=== PATIENT | male | born 1955 | race African-American/Black ===

== ENCOUNTER 2016-09-18 11:01 | Inpatient (IN) | payer OTHER ==
[2016-09-18 11:46] VITALS: BMI 20.6
--- NOTE | 2016-09-18 13:49 | HP ---
CIWA Score - CIWA Score Nausea/Vomitin-No Nausea/No Vomiting Muscle Tremors: 4-Moderate,w/Arms Extend Anxiety: 3 Agitation: 4-Moderately Restless Paroxysmal Sweats: 3 Orientation: 0-Oriented Tacttile Disturbances: 0-None Auditory Disturbances: 0-None Visual Disturbances: 0-None Headache: 0-None Present CIWA-Ar Total Score: 14 Admission ROS BHS - HPI Chief Complaint: I started drinking and now its become a daily thing and need help to stop and try to stay sober. Allergies/Adverse Reactions: Allergies Allergy/AdvReac Type Severity Reaction Status Date / Time No Known Allergies Allergy Verified 09/18/16 12:28 History of Present Illness: pt is a 61yr old male with a history of alcohol dependence seeking detox for treatment. Exam Limitations: No Limitations - Ebola screening Have you traveled outside of the country in the last 21 days: No Have you had contact with anyone from an Ebola affected area: No Have you been sick,other than usual withdrawal symptoms: No Do you have a fever: No - Review of Systems Constitutional: Chills, Diaphoresis, Loss of Appetite, Night Sweats EENT: reports: No Symptoms Reported Respiratory: reports: No Symptoms reported Cardiac: reports: Syncope GI: reports: Constipated, Nausea, Poor Appetite, Poor Fluid Intake : reports: No Symptoms Reported Musculoskeletal: reports: Muscle Pain Integumentary: reports: Flushing, Sweating Neuro: reports: Tingling, Tremors Endocrine: reports: Excessive Sweating, Flushing, Intolerance to Cold, Intolerance to Heat Hematology: reports: No Symptoms Reported Psychiatric: reports: Judgement Intact, Mood/Affect Appropiate, Orientated x3, Agitated, Anxious Other Systems: Reviewed and Negative Patient History - Patient Medical History Hx Anemia: Yes (IN THE PAST) Hx Asthma: No Hx Chronic Obstructive Pulmonary Disease (COPD): No Hx Cancer: No Hx Cardiac Disorders: No Hx Congestive Heart Failure: No Hx Hypertension: Yes (non compliant with meds.) Hx Hypercholesterolemia: No Hx Pacemaker: No HX Cerebrovascular Accident: No Hx Seizures: No Hx Dementia: No Hx Diabetes: No Hx Gastrointestinal Disorders: No Hx Liver Disease: No Hx Genitourinary Disorders: No Hx Sexually Transmitted Disorders: No Hx Renal Disease (ESRD): No Hx Thyroid Disease: No Hx Human Immunodeficiency Virus (HIV): No (negative) Hx Hepatitis C: Yes Hx Depression: Yes Hx Suicide Attempt: No (denies) Hx Bipolar Disorder: Yes Hx Schizophrenia: No - Patient Surgical History Past Surgical History: Yes Hx Neurologic Surgery: No Hx Cataract Extraction: No Hx Cardiac Surgery: No Hx Lung Surgery: No Hx Breast Surgery: No Hx Breast Biopsy: No Hx Abdominal Surgery: No Hx Appendectomy: No Hx Cholecystectomy: No Hx Genitourinary Surgery: No Hx Section: No Hx Orthopedic Surgery: Yes (fracture both both ankles 27yrs ago) Anesthesia Reaction: No - PPD History Previous Implant?: Yes Documented Results: Positive w/o proof Implanted On Prior R Admission?: No PPD to be Administered?: No - Reproductive History Patient is a Female of Child Bearing Age (11 -55 yrs old): No - Smoking Cessation Smoking history: Current every day smoker Have you smoked in the past 12 months: Yes Aproximately how many cigarettes per day: 4 Cigars Per Day: 0 Hx Chewing Tobacco Use: No Initiated information on smoking cessation: Yes 'Breaking Loose' booklet given: 09/18/16 - Substance & Tx. History Hx Alcohol Use: Yes Hx Substance Use: No Substance Use Type: Alcohol Hx Substance Use Treatment: Yes - Substances Abused Alcohol Route: Oral Frequency: Daily Amount used: 4 pints vodka Age of first use: 17 Date of Last Use: 09/17/16 Family Disease History - Family Disease History Family Disease History: Heart Disease: Mother (arthritis, htn), Brother, [place]: Father (etoh ), Other: Father, Mother Admission Physical Exam BHS - Vital Signs Vital Signs: Vital Signs - 24 hr 09/18/16 11:30 Temperature 98.3 F Pulse Rate 73 Respiratory 18 Rate Blood Pressure 138/75 - Physical General Appearance: Yes: Appropriately Dressed, Moderate Distress, Tremorous, Irritable, Sweating, Anxious HEENTM: Yes: Normal Voice Respiratory: Yes: Lungs Clear, Normal Breath Sounds, No Respiratory Distress Neck: Yes: No masses,lesions,Nodules Breast: Yes: Within Normal Limits Cardiology: Yes: Regular Rhythm, Regular Rate, S1, S2 Abdominal: Yes: Normal Bowel Sounds, Non Tender, Soft Genitourinary: Yes: Within Normal Limits Back: Yes: Normal Inspection Musculoskeletal: Yes: full range of Motion Extremities: Yes: Normal Capillary Refill Neurological: Yes: Fully Oriented, Alert, Normal Response Integumentary: Yes: Normal Color, Diaphoresis Lymphatic: Yes: Within Normal Limits - Diagnostic (1) Essential hypertension Current Visit: Yes Status: Chronic (2) Hepatitis C Current Visit: Yes Status: Chronic Qualifiers: Viral hepatitis chronicity: chronic Hepatic coma status: without hepatic coma Qualified Code(s): B18.2 - Chronic viral hepatitis C (3) Nicotine dependence Current Visit: Yes Status: Chronic Qualifiers: Nicotine product type: cigarettes Substance use status: uncomplicated Qualified Code(s): F17.210 - Nicotine dependence, cigarettes, uncomplicated (4) Alcohol dependence with uncomplicated withdrawal Current Visit: Yes Status: Chronic Cleared for Admission S - Detox or Rehab [facility] Level of Care: Medically Managed Detox Regimen/Protocol: Librium S Breath Alcohol Content Breath Alcohol Content: 0 Urine Drug Screen - Results Drug Screen Negative: No Urine Drug Screen Results: THC-Marijuana, BZO-Benzodiazepines
[2016-09-18] MEDS ORDERED: chlordiazePOXIDE HCL 25 MG CAPSULE PO PRN (14:00)
[2016-09-18] MEDS ORDERED: guaiFENesin/D-METHORPHAN HB 10 ML UNIT-DOSE CUPS PO PRN (14:00)
[2016-09-18] MEDS ORDERED: MAG HYDROX/AL HYDROX/SIMETH 30 ML UNIT-DOSE CUP PO PRN (14:00)
[2016-09-18] MEDS ORDERED: LOPERAMIDE HCL 2 MG CAPSULE PO PRN (14:00)
[2016-09-18] MEDS ORDERED: IBUPROFEN 400 MG TABLET (FP) PO PRN (14:00)
[2016-09-18] MEDS ORDERED: MAGNESIUM HYDROX 2400MG/30ML ORAL SUSPENSION 30 ML CUP PO PRN (14:00)
[2016-09-18] MEDS ORDERED: MAGNESIUM CITRATE 300 ML BOTTLE PO PRN (14:00)
[2016-09-18] MEDS ORDERED: MENTHOL/PHENOL 1 EACH UD MM PRN (14:00)
[2016-09-18] MEDS ORDERED: ACETAMINOPHEN 325 MG TABLET (FP) PO PRN (14:00)
[2016-09-18] MEDS ORDERED: NICOTINE POLACRILEX 4 MG GUM BUC PRN (14:00)
[2016-09-18] MEDS ORDERED: P-EPHED 60MG/TRIPROLIDI 2.5MG TABLET PO PRN (14:00)
[2016-09-18] MEDS ORDERED: hydrOXYzine PAMOATE 50 MG CAPSULE (FP) PO PRN (14:00)
[2016-09-18] MEDS ORDERED: chlordiazePOXIDE HCL 25 MG CAPSULE PO ONE (14:06)
[2016-09-18] MEDS: chlordiazePOXIDE HCL 25 MG CAPSULE PO SCH ×2 (17:34→22:28)
[2016-09-18 20:38] LABS: HIV 1 & 2 AB NEGATIVE; HIV 1 AGp24 NEGATIVE
[2016-09-18] MEDS: THIAMINE HCL 100 MG TABLET (FP) PO SCH (22:28)
[2016-09-18] MEDS: diphenhydrAMINE HCL 50 MG CAPSULE PO PRN (22:28)
--- NOTE | 2016-09-18 23:02 | EKG ---
Test Reason : Blood Pressure : / mmHG Vent. Rate : 065 BPM Atrial Rate : 065 BPM P-R Int : 120 ms QRS Dur : 084 ms QT Int : 424 ms P-R-T Axes : 075 058 060 degrees QTc Int : 440 ms NORMAL SINUS RHYTHM NONSPECIFIC ST ABNORMALITY ABNORMAL ECG NO PREVIOUS ECGS AVAILABLE Confirmed by ROCÍO REZA MD ([id number]) on 09/18/2016 11:01:33 PM Referred By: Confirmed By:ROCÍO REZA MD
[2016-09-19] MEDS: chlordiazePOXIDE HCL 25 MG CAPSULE PO SCH ×4 (05:55→22:31)
[2016-09-19] MEDS: PRENATAL VITAMINS W/ FOLIC ACID TABLET (FP) PO SCH (10:09)
[2016-09-19] MEDS: SERTRALINE HCL 50 MG TABLET (FP) PO SCH (10:09)
[2016-09-19] MEDS: ASPIRIN 81 MG CHEWABLE TABLETS PO SCH (10:09)
[2016-09-19] MEDS: amLODIPine BESYLATE 10 MG TABLET (FP) PO SCH (10:10)
[2016-09-19] MEDS: NICOTINE 21 MG/24 HOURS TOPICAL PATCH TD SCH (10:12)
--- NOTE | 2016-09-19 10:37 | PN ---
BHS CIWA - CIWA Score Nausea/Vomitin Muscle Tremors: 2 Anxiety: 2 Agitation: 2 Paroxysmal Sweats: 3 Orientation: 0-Oriented Tacttile Disturbances: 1-Very Mild Itch/Numbness Auditory Disturbances: 0-None Visual Disturbances: 0-None Headache: 1-Very Mild CIWA-Ar Total Score: 13 BHS Progress Note (SOAP) Subjective: sweats, mild headache but better Objective: 09/19/16 10:35 Vital Signs Temperature 99.1 F 09/19/16 09:38 Pulse Rate 79 09/19/16 09:38 Respiratory Rate 20 09/19/16 09:38 Blood Pressure 135/84 09/19/16 09:38 O2 Sat by Pulse Oximetry (%) Laboratory Tests 09/18/16 13:15 HIV 1&2 Antibody Screen Negative HIV P24 Antigen Negative pending labs pt aox3 in nad ambulating Assessment: 09/19/16 10:35 withdrawal sx's Plan: cont. detox increase fluids motrin prn f/up pending labs
[2016-09-19 10:38] LABS: MCH 31.8 pg (25.7-33.7); MCHC 32.7 g/dl (32.0-35.9); MEAN CELL VOLUME 97.4 fl (80-96); MEAN PLT VOLUME 9.8 fl (7.5-11.1); PLATELET COUNT 94 K/MM3 (134-434); RDW 12.9 % (11.9-15.9); WHITE BLOOD COUNT 3.4 K/mm3 (4.0-10.0)
[2016-09-19] MEDS ORDERED: LISINOPRIL 20 MG TABLET (FP) PO ONE (10:50)
[2016-09-19 10:58] LABS: ALBUMIN 4.3 g/dl (3.4-5.0); ALK PHOS 72 U/L (45-117); ANION GAP 11 (8-16); CALCIUM 9.8 mg/dL (8.5-10.1); CO2 29 mmol/L (21-32); COCKROFT - GAULT 92.07; CREATININE 0.8 mg/dL (0.7-1.3); GLUCOSE,RANDOM 131 mg/dL (74-106); SGOT/AST 46 U/L (15-37); SGPT/ALT 36 U/L (12-78); TOT PROT 8.1 g/dl (6.4-8.2)
--- NOTE | 2016-09-19 16:38 | CONSULT ---
[facility] Psychiatric Consult - Data Date of interview: 09/19/16 Admission source: [facility] Identifying data: Readmission to [facility] for this 61 y/o AA male seeking detox treatment for alcohol dependence (utox is positive for marijuana).Patient is single without children,domiciled,unemployed and supported on Public Assistance. Substance Abuse History: - Smoking Cessation. Smoking history: Current every day smoker. Have you smoked in the past 12 months: Yes. Aproximately how many cigarettes per day: 4. Cigars Per Day: 0. Hx Chewing Tobacco Use: No. Initiated information on smoking cessation: Yes. 'Breaking Loose' booklet given : 09/18/16. - Substance & Tx. History. Hx Alcohol Use: Yes. Hx Substance Use : No. Substance Use Type: Alcohol. Hx Substance Use Treatment: Yes. - Substances Abused. Alcohol. Route: Oral. Frequency: Daily. Amount used: 4 pints vodka. Age of first use: 17. Date of Last Use: 09/17/16. Confirmed by patient. Medical History: GERD,anemia,hypertension and hepatitis C. Psychiatric History: Diagnosed with Bipolar Dipolar Disorder at [facility] in 2012.Prescribed sertraline and trazodone (doses not remembered).Mr Cotto is followed at [facility] in [facility].Suicide attempt via overdose with medications represents the main reason of his admission to [facility] in 2012. Physical/Sexual Abuse/Trauma History: Patient denies. Additional Comment: Urine Drug Screen Results: THC-Marijuana, BZO- Benzodiazepines.Noted. Mental Status Exam - Mental Status Exam Alert and Oriented to: Time, Place, Person Cognitive Function: Good Patient Appearance: Well Groomed Mood: Withdrawn, Anxious Affect: Mood Congruent Patient Behavior: Fatigued, Appropriate, Cooperative Speech Pattern: Clear, Appropriate Voice Loudness: Normal Thought Process: Goal Oriented Thought Disorder: Not Present Hallucinations: Denies Suicidal Ideation: Denies Homicidal Ideation: Denies Insight/Judgement: Fair Sleep: Poorly, Difficulty falling asleep Appetite: Good Muscle strength/Tone: Normal Gait/Station: Normal Psychiatric Findings - Problem List (Vici 1, 2,3) (1) Alcohol dependence with uncomplicated withdrawal Current Visit: Yes Status: Acute (2) Nicotine dependence Current Visit: Yes Status: Acute Qualifiers: Nicotine product type: cigarettes Substance use status: uncomplicated Qualified Code(s): F17.210 - Nicotine dependence, cigarettes, uncomplicated (3) Cannabis abuse Current Visit: Yes Status: Acute (4) Bipolar disorder Current Visit: Yes Status: Chronic Qualifiers: Active/Remission status: currently active Current bipolar episode type : depressed Current episode severity: mild Qualified Code(s): F31.31 - Bipolar disorder, current episode depressed, mild (5) Essential hypertension Current Visit: Yes Status: Chronic (6) Hepatitis C Current Visit: Yes Status: Chronic Qualifiers: Viral hepatitis chronicity: chronic Hepatic coma status: without hepatic coma Qualified Code(s): B18.2 - Chronic viral hepatitis C (7) GERD (gastroesophageal reflux disease) Current Visit: Yes Status: Chronic Qualifiers: Esophagitis presence: without esophagitis Qualified Code(s): K21.9 - Gastro-esophageal reflux disease without esophagitis (8) Insomnia Current Visit: Yes Status: Acute - Initial Treatment Plan Initial Treatment Plan: Psychoeducation.Detoxification.Noted current treatment with zoloft 100 mg po daily.Side effects/benefits discussed with the patient.He agrees with this careplan.Observation.
[2016-09-19] MEDS: diphenhydrAMINE HCL 50 MG CAPSULE PO PRN (22:31)
[2016-09-19] MEDS: THIAMINE HCL 100 MG TABLET (FP) PO SCH (22:31)
[2016-09-20] MEDS: chlordiazePOXIDE HCL 25 MG CAPSULE PO SCH ×2 (05:44→10:21)
[2016-09-20] MEDS: PRENATAL VITAMINS W/ FOLIC ACID TABLET (FP) PO SCH (10:20)
[2016-09-20] MEDS: ASPIRIN 81 MG CHEWABLE TABLETS PO SCH (10:20)
[2016-09-20] MEDS: SERTRALINE HCL 50 MG TABLET (FP) PO SCH (10:20)
[2016-09-20] MEDS: amLODIPine BESYLATE 10 MG TABLET (FP) PO SCH (10:21)
[2016-09-20] MEDS: LISINOPRIL 20 MG TABLET (FP) PO SCH (10:21)
[2016-09-20] MEDS: NICOTINE 21 MG/24 HOURS TOPICAL PATCH TD SCH (10:24)
--- NOTE | 2016-09-20 10:57 | PN ---
[facility] CIWA - CIWA Score Nausea/Vomitin-No Nausea/No Vomiting Muscle Tremors: 3 Anxiety: 2 Agitation: 3 Paroxysmal Sweats: 3 Orientation: 0-Oriented Tacttile Disturbances: 0-None Auditory Disturbances: 0-None Visual Disturbances: 0-None Headache: 0-None Present CIWA-Ar Total Score: 11 BHS Progress Note (SOAP) Subjective: sweats agitation shakes interrupted sleep Objective: 09/20/16 10:57 Vital Signs Temperature 96.4 F L 09/20/16 09:11 Pulse Rate 64 09/20/16 09:11 Respiratory Rate 16 09/20/16 09:11 Blood Pressure 130/74 09/20/16 09:11 O2 Sat by Pulse Oximetry (%) Laboratory Tests 09/18/16 09/19/16 09/19/16 13:15 06:00 06:00 WBC 3.4 L D RBC 4.29 Hgb 13.7 Hct 41.8 MCV 97.4 H MCHC 32.7 RDW 12.9 Plt Count 94 L D MPV 9.8 Sodium 138 Potassium 3.7 Chloride 98 Carbon Dioxide 29 D Anion Gap 11 BUN 23 H D Creatinine 0.8 Creat Clearance w eGFR > 60 Random Glucose 131 H D Calcium 9.8 Total Bilirubin 2.0 H D AST 46 H D ALT 36 D Alkaline Phosphatase 72 Total Protein 8.1 Albumin 4.3 RPR Titer HIV 1&2 Antibody Screen Negative HIV P24 Antigen Negative 09/19/16 06:00 WBC RBC Hgb Hct MCV MCHC RDW Plt Count MPV Sodium Potassium Chloride Carbon Dioxide Anion Gap BUN Creatinine Creat Clearance w eGFR Random Glucose Calcium Total Bilirubin AST ALT Alkaline Phosphatase Total Protein Albumin RPR Titer Nonreactive HIV 1&2 Antibody Screen HIV P24 Antigen awake/alert ambulating no acute distress Assessment: 09/20/16 10:57 withdrawal sx Plan: continue detox increase fluids
[2016-09-20] MEDS: chlordiazePOXIDE 5 MG CAPSULE PO SCH ×2 (17:40→23:22)
[2016-09-20] MEDS: diphenhydrAMINE HCL 50 MG CAPSULE PO PRN (23:22)
[2016-09-20] MEDS: THIAMINE HCL 100 MG TABLET (FP) PO SCH (23:25)
[2016-09-21] MEDS: chlordiazePOXIDE 5 MG CAPSULE PO SCH ×2 (05:45→11:19)
--- NOTE | 2016-09-21 09:08 | PN ---
S Progress Note (SOAP) Subjective: ALERT,IRRITABLE,ANXIOUS,INTERRUPTED SLEEP Objective: 09/21/16 09:07 Vital Signs Temperature 97.0 F L 09/21/16 06:24 Pulse Rate 57 L 09/21/16 06:24 Respiratory Rate 16 09/21/16 06:24 Blood Pressure 128/75 09/21/16 06:24 O2 Sat by Pulse Oximetry (%) Assessment: 09/21/16 09:07 WITHDRAWAL SYMPTOM Plan: CONTINUE DETOX,DISCHARGE IN AM
[2016-09-21] MEDS: ASPIRIN 81 MG CHEWABLE TABLETS PO SCH (11:17)
[2016-09-21] MEDS: HARVONI PO SCH (11:17)
[2016-09-21] MEDS: amLODIPine BESYLATE 10 MG TABLET (FP) PO SCH (11:18)
[2016-09-21] MEDS: LISINOPRIL 20 MG TABLET (FP) PO SCH (11:18)
[2016-09-21] MEDS: PRENATAL VITAMINS W/ FOLIC ACID TABLET (FP) PO SCH (11:18)
[2016-09-21] MEDS: SERTRALINE HCL 50 MG TABLET (FP) PO SCH (11:19)
[2016-09-21] MEDS: NICOTINE 21 MG/24 HOURS TOPICAL PATCH TD SCH (11:19)
[2016-09-21] MEDS: chlordiazePOXIDE HCL 10 MG CAPSULE PO SCH ×2 (18:14→22:42)
[2016-09-21] MEDS: THIAMINE HCL 100 MG TABLET (FP) PO SCH (22:42)
[2016-09-22] MEDS: chlordiazePOXIDE HCL 10 MG CAPSULE PO SCH (06:18)
[2016-09-22] MEDS: ASPIRIN 81 MG CHEWABLE TABLETS PO SCH (09:54)
[2016-09-22] MEDS: PRENATAL VITAMINS W/ FOLIC ACID TABLET (FP) PO SCH (09:54)
[2016-09-22] MEDS: LISINOPRIL 20 MG TABLET (FP) PO SCH (09:54)
[2016-09-22] MEDS: SERTRALINE HCL 50 MG TABLET (FP) PO SCH (09:54)
[2016-09-22] MEDS: HARVONI PO SCH (09:54)
[2016-09-22] MEDS: NICOTINE 21 MG/24 HOURS TOPICAL PATCH TD SCH (09:55)
[2016-09-22] MEDS: amLODIPine BESYLATE 10 MG TABLET (FP) PO SCH (09:55)
[2016-09-22 10:32] VITALS: BP 112/75; PULSE 98; TEMP 98.8
--- NOTE | 2016-09-22 15:07 | DS ---
[facility] Detox Discharge Summary Admission Date: 09/18/16 Discharge Date: 09/22/16 - History Present History: Alcohol Dependence, Cannabis Dependence, Cocaine Dependence Additional Comments: HTN,GERD,Hep C - Physical Exam Results Vital Signs: Vital Signs Temperature 98.8 F 09/22/16 10:32 Pulse Rate 98 H 09/22/16 10:32 Respiratory Rate 18 09/22/16 10:32 Blood Pressure 112/75 09/22/16 10:32 O2 Sat by Pulse Oximetry (%) Pertinent Admission Physical Exam Findings: Withdrawal sx Laboratory Last Values WBC 3.4 K/mm3 (4.0-10.0) L D 09/19/16 06:00 RBC 4.29 M/mm3 (4.00-5.60) 09/19/16 06:00 Hgb 13.7 GM/dL (11.7-16.9) 09/19/16 06:00 Hct 41.8 % (35.4-49) 09/19/16 06:00 MCV 97.4 fl (80-96) H 09/19/16 06:00 MCHC 32.7 g/dl (32.0-35.9) 09/19/16 06:00 RDW 12.9 % (11.9-15.9) 09/19/16 06:00 Plt Count 94 K/MM3 (134-434) L D 09/19/16 06:00 MPV 9.8 fl (7.5-11.1) 09/19/16 06:00 Sodium 138 mmol/L (136-145) 09/19/16 06:00 Potassium 3.7 mmol/L (3.5-5.1) 09/19/16 06:00 Chloride 98 mmol/L (98-107) 09/19/16 06:00 Carbon Dioxide 29 mmol/L (21-32) D 09/19/16 06:00 Anion Gap 11 (8-16) 09/19/16 06:00 BUN 23 mg/dL (7-18) H D 09/19/16 06:00 Creatinine 0.8 mg/dL (0.7-1.3) 09/19/16 06:00 Creat Clearance w eGFR > 60 (>60) 09/19/16 06:00 Random Glucose 131 mg/dL (74-106) H D 09/19/16 06:00 Calcium 9.8 mg/dL (8.5-10.1) 09/19/16 06:00 Total Bilirubin 2.0 mg/dL (0.2-1.0) H D 09/19/16 06:00 AST 46 U/L (15-37) H D 09/19/16 06:00 ALT 36 U/L (12-78) D 09/19/16 06:00 Alkaline Phosphatase 72 U/L (45-117) 09/19/16 06:00 Total Protein 8.1 g/dl (6.4-8.2) 09/19/16 06:00 Albumin 4.3 g/dl (3.4-5.0) 09/19/16 06:00 RPR Titer Nonreactive (NONREACTIVE) 09/19/16 06:00 HIV 1&2 Antibody Screen Negative 09/18/16 13:15 HIV P24 Antigen Negative 09/18/16 13:15 Labs noted - Treatment Hospital Course: Detox Protocol Followed, Detoxed Safely, Responded well, Discharged Condition Good - Medication Discharge Medications: Ambulatory Orders Amlodipine Besylate [Norvasc -] 10 mg PO DAILY #30 tablet 04/16/15 Aspirin [ASA -] 81 mg PO DAILY #30 tab.chew 04/16/15 Sertraline HCl [Zoloft -] 100 mg PO DAILY #30 tablet 03/15/16 Sertraline HCl [Zoloft -] 100 mg PO DAILY #30 tablet 09/19/16 - Diagnosis (1) Alcohol dependence with uncomplicated withdrawal Status: Acute (2) Cannabis abuse Status: Acute (3) Insomnia Status: Acute Qualifiers: Insomnia type: primary Qualified Code(s): F51.01 - Primary insomnia (4) Nicotine dependence Status: Acute Qualifiers: Nicotine product type: cigarettes Substance use status: uncomplicated Qualified Code(s): F17.210 - Nicotine dependence, cigarettes, uncomplicated (5) Bipolar disorder Status: Chronic Qualifiers: Active/Remission status: currently active Current bipolar episode type : depressed Current episode severity: mild Qualified Code(s): F31.31 - Bipolar disorder, current episode depressed, mild (6) Essential hypertension Status: Chronic (7) GERD (gastroesophageal reflux disease) Status: Chronic Qualifiers: Esophagitis presence: without esophagitis Qualified Code(s): K21.9 - Gastro-esophageal reflux disease without esophagitis (8) Hepatitis C Status: Chronic Qualifiers: Viral hepatitis chronicity: chronic Hepatic coma status: without hepatic coma Qualified Code(s): B18.2 - Chronic viral hepatitis C - AMA Did Patient Leave Against Medical Advice: No
== END 2016-09-22 10:05 | disposition home or self-care (01) | DRG 775 ==
LOC: YASAS 11:01 → Y6N 14:04
PROVIDERS: ADMIT Internal Medicine Addiction Medicine; ATTEND Internal Medicine Addiction Medicine
PROC: HZ2ZZZZ Detoxification Services for Substance Abuse Treatment (ICD-10-PCS; principal; 2016-09-22)
DX: F10.230 Alcohol dependence with withdrawal, uncomplicated (principal); F17.210 Nicotine dependence, cigarettes, uncomplicated; F12.10 Cannabis abuse, uncomplicated; F31.31 Bipolar disorder, current episode depressed, mild; F51.01 Primary insomnia; I10 Essential (primary) hypertension; K21.9 Gastro-esophageal reflux disease without esophagitis; B18.2 Chronic viral hepatitis C; F31.9 Bipolar disorder, unspecified
CPT/HCPCS: 36415; 71020-TC; 80053; 81003; 85027; 86593; 87389; 93005; 93010

== ENCOUNTER 2017-01-14 12:46 | Inpatient (IN) | payer OTHER ==
--- NOTE | 2017-01-14 15:35 | HP ---
CIWA Score - CIWA Score Nausea/Vomitin Muscle Tremors: 4-Moderate,w/Arms Extend Anxiety: 3 Agitation: 4-Moderately Restless Paroxysmal Sweats: 3 Orientation: 0-Oriented Tacttile Disturbances: 1-Very Mild Itch/Numbness Auditory Disturbances: 0-None Visual Disturbances: 0-None Headache: 3-Moderate CIWA-Ar Total Score: 21 Admission ROS BHS - HPI Chief Complaint: alcohol and cocaine withdrawal sx Allergies/Adverse Reactions: Allergies Allergy/AdvReac Type Severity Reaction Status Date / Time No Known Allergies Allergy Verified 09/18/16 12:28 History of Present Illness: 61 yo m with h/o chroonic alcohol and cocaine dependence last detox at [facility] 7 months PMHx nicotine dependenceHTN, PPD+ CXr neg, took Inh IN PAST. lAST DRINK YESTERDAY NOW WITH NAUSEA, TREMORS, SWEATS, ANXIETY REQUESTING INPATIENT DETOX AND THEN REHAB - Ebola screening Have you traveled outside of the country in the last 21 days: No Have you had contact with anyone from an Ebola affected area: No Have you been sick,other than usual withdrawal symptoms: No Do you have a fever: No - Review of Systems Constitutional: Changes in sleep, Unintentional Wgt. Loss EENT: reports: No Symptoms Reported Respiratory: reports: No Symptoms reported Cardiac: reports: No Symptoms Reported GI: reports: Nausea, Poor Appetite, Abdominal cramping : reports: No Symptoms Reported Musculoskeletal: reports: Joint Pain, Muscle Pain, Other (arthritis, age related ) Integumentary: reports: Flushing, Sweating Neuro: reports: Headache, Numbness, Tremors, Weakness Endocrine: reports: No Symptoms Reported Psychiatric: reports: Judgement Intact, Orientated x3, Agitated, Anxious, Depressed Other Systems: Reviewed and Negative Patient History - Patient Medical History Hx Anemia: Yes (IN THE PAST) Hx Asthma: No Hx Chronic Obstructive Pulmonary Disease (COPD): No Hx Cancer: No Hx Cardiac Disorders: No Hx Congestive Heart Failure: No Hx Hypertension: Yes (non compliant with meds.) Hx Hypercholesterolemia: No Hx Pacemaker: No HX Cerebrovascular Accident: No Hx Seizures: No Hx Dementia: No Hx Diabetes: No Hx Gastrointestinal Disorders: No Hx Liver Disease: No Hx Genitourinary Disorders: No Hx Sexually Transmitted Disorders: No Hx Renal Disease (ESRD): No Hx Thyroid Disease: No Hx Human Immunodeficiency Virus (HIV): No (negative) Hx Hepatitis C: Yes Hx Depression: Yes Hx Suicide Attempt: No (denies) Hx Bipolar Disorder: Yes Hx Schizophrenia: No - Patient Surgical History Past Surgical History: Yes Hx Neurologic Surgery: No Hx Cataract Extraction: No Hx Cardiac Surgery: No Hx Lung Surgery: No Hx Breast Surgery: No Hx Breast Biopsy: No Hx Abdominal Surgery: No Hx Appendectomy: No Hx Cholecystectomy: No Hx Genitourinary Surgery: No Hx Section: No Hx Orthopedic Surgery: Yes (fracture both both ankles 27yrs ago) Hx Hysterectomy: No Anesthesia Reaction: No - PPD History Previous Implant?: Yes Documented Results: Positive w/o proof Implanted On Prior R Admission?: No PPD to be Administered?: No - Smoking Cessation Smoking history: Current every day smoker Have you smoked in the past 12 months: Yes Aproximately how many cigarettes per day: 4 Cigars Per Day: 0 Hx Chewing Tobacco Use: No Initiated information on smoking cessation: Yes 'Breaking Loose' booklet given: 01/14/17 - Substance & Tx. History Hx Alcohol Use: Yes (last drink yesterday) Hx Substance Use: Yes (cocaine ) Substance Use Type: Alcohol, Cocaine Hx Substance Use Treatment: Yes - Substances Abused Alcohol Route: Oral Frequency: Daily Amount used: 3-4 points vodka daily Age of first use: 18 Date of Last Use: 01/13/17 Cocaine Route: Smoking Frequency: 1-3 times last 30 days Amount used: $120/day Age of first use: 30 Date of Last Use: 01/13/17 Family Disease History - Family Disease History Family Disease History: Heart Disease: Mother (arthritis, htn), Brother, [place]: Father (etoh ), Other: Father, Mother Admission Physical Exam BHS - Vital Signs Vital Signs: Vital Signs - 24 hr 01/14/17 14:03 Temperature 99.6 F Pulse Rate 69 Respiratory 20 Rate Blood Pressure 154/86 - Physical General Appearance: Yes: No Apparent Distress, Nourished, Appropriately Dressed , Mild Distress, Thin, Tremorous, Irritable, Sweating, Anxious HEENTM: Yes: EOMI, Hearing grossly Normal, Normal ENT Inspection, Normocephalic , Normal Voice, CHRISTOPHER, Pharynx Normal Respiratory: Yes: Within Normal Limits, Chest Non-Tender, Lungs Clear, Normal Breath Sounds, No Respiratory Distress, No Accessory Muscle Use Neck: Yes: Within Normal Limits, No masses,lesions,Nodules, Supple, Trachea in good position Breast: Yes: Breast Exam Deferred Cardiology: Yes: Within Normal Limits, Regular Rhythm, Regular Rate, S1, S2 Abdominal: Yes: Within Normal Limits, Normal Bowel Sounds, Non Tender, Flat, Soft Genitourinary: Yes: Within Normal Limits Back: Yes: Within Normal Limits, Normal Inspection Musculoskeletal: Yes: Gait Steady, Joint Stiffness, Other (arthritis limiting range of motion no h/o injuries age realted) Extremities: Yes: Normal Capillary Refill, Normal Range of Motion, Non-Tender, Tremors Neurological: Yes: 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 NML intact, Fully Oriented, Alert, Motor Strength 5/5, Normal Response, Depressed Affect Integumentary: Yes: Normal Color, Warm, Diaphoresis Lymphatic: Yes: Within Normal Limits - Addiitonal Findings: alcohol withdrawal sx present - Diagnostic (1) Alcohol dependence with uncomplicated withdrawal Current Visit: Yes Status: Chronic (2) Cannabis abuse Current Visit: No Status: Inactive (3) Insomnia Current Visit: Yes Status: Acute Qualifiers: Insomnia type: primary Qualified Code(s): F51.01 - Primary insomnia (4) Nicotine dependence Current Visit: Yes Status: Chronic Qualifiers: Nicotine product type: cigarettes Substance use status: uncomplicated Qualified Code(s): F17.210 - Nicotine dependence, cigarettes, uncomplicated (5) Bipolar disorder Current Visit: Yes Status: Chronic Qualifiers: Active/Remission status: currently active Current bipolar episode type : depressed Current episode severity: mild Qualified Code(s): F31.31 - Bipolar disorder, current episode depressed, mild (6) Essential hypertension Current Visit: Yes Status: Chronic (7) GERD (gastroesophageal reflux disease) Current Visit: Yes Status: Chronic Qualifiers: Esophagitis presence: without esophagitis Qualified Code(s): K21.9 - Gastro-esophageal reflux disease without esophagitis (8) Hepatitis C Current Visit: Yes Status: Chronic Qualifiers: Viral hepatitis chronicity: chronic Hepatic coma status: without hepatic coma Qualified Code(s): B18.2 - Chronic viral hepatitis C (9) Cocaine dependence Current Visit: Yes Status: Acute BHS Breath Alcohol Content Breath Alcohol Content: 0 Urine Drug Screen - Results Drug Screen Negative: No Urine Drug Screen Results: MAX-Cocaine
[2017-01-14] MEDS ORDERED: hydrOXYzine PAMOATE 50 MG CAPSULE (FP) PO PRN (15:42)
[2017-01-14] MEDS ORDERED: diphenhydrAMINE HCL 50 MG CAPSULE PO PRN (15:42)
[2017-01-14] MEDS ORDERED: LOPERAMIDE HCL 2 MG CAPSULE PO PRN (15:42)
[2017-01-14] MEDS ORDERED: guaiFENesin/D-METHORPHAN HB 10 ML UNIT-DOSE CUPS PO PRN (15:42)
[2017-01-14] MEDS ORDERED: P-EPHED 60MG/TRIPROLIDI 2.5MG TABLET PO PRN (15:42)
[2017-01-14] MEDS ORDERED: MAGNESIUM CITRATE 300 ML BOTTLE PO PRN (15:42)
[2017-01-14] MEDS ORDERED: ACETAMINOPHEN 325 MG TABLET (FP) PO PRN (15:42)
[2017-01-14] MEDS ORDERED: MENTHOL/PHENOL 1 EACH UD MM PRN (15:42)
[2017-01-14] MEDS ORDERED: MAG HYDROX/AL HYDROX/SIMETH 30 ML UNIT-DOSE CUP PO PRN (15:42)
[2017-01-14] MEDS ORDERED: MAGNESIUM HYDROX 2400MG/30ML ORAL SUSPENSION 30 ML CUP PO PRN (15:42)
[2017-01-14] MEDS ORDERED: NICOTINE POLACRILEX 2 MG GUM BC PRN (15:42)
[2017-01-14] MEDS ORDERED: IBUPROFEN 400 MG TABLET (FP) PO PRN (15:42)
[2017-01-14] MEDS ORDERED: chlordiazePOXIDE HCL 25 MG CAPSULE PO PRN (15:48)
[2017-01-14] MEDS ORDERED: chlordiazePOXIDE HCL 25 MG CAPSULE PO ONE (18:30)
[2017-01-14] MEDS: ASPIRIN 81 MG CHEWABLE TABLETS PO SCH (19:26)
[2017-01-14] MEDS: chlordiazePOXIDE HCL 25 MG CAPSULE PO SCH ×2 (19:26→22:18)
[2017-01-14] MEDS: amLODIPine BESYLATE 10 MG TABLET (FP) PO SCH (19:26)
[2017-01-14] MEDS: NICOTINE 14 MG/24 HOURS TOPICAL PATCH TD SCH (19:27)
[2017-01-14 21:04] LABS: URINE APPEARANCE CLEAR; URINE BILIRUBIN NEGATIVE (NEGATIVE); URINE BLOOD NEGATIVE (NEGATIVE); URINE COLOR YELLOW; URINE GLUCOSE (UA) NEGATIVE (NEGATIVE); URINE KETONE NEGATIVE (NEGATIVE); URINE LEUK ESTERASE NEGATIVE (NEGATIVE); URINE NITRITE NEGATIVE (NEGATIVE); URINE PROTEIN NEGATIVE (NEGATIVE)
[2017-01-14] MEDS: ZOLPIDEM TARTRATE 5 MG TABLET PO PRN (22:18)
[2017-01-14] MEDS: THIAMINE HCL 100 MG TABLET (FP) PO SCH (22:18)
[2017-01-15] MEDS: chlordiazePOXIDE HCL 25 MG CAPSULE PO SCH ×4 (05:42→22:04)
--- NOTE | 2017-01-15 10:15 | PN ---
S CIWA - CIWA Score Nausea/Vomitin Muscle Tremors: 4-Moderate,w/Arms Extend Anxiety: 4-Mod. Anxious/Guarded Agitation: 4-Moderately Restless Paroxysmal Sweats: 3 Orientation: 0-Oriented Tacttile Disturbances: 0-None Auditory Disturbances: 0-None Visual Disturbances: 0-None Headache: 0-None Present CIWA-Ar Total Score: 18 BHS Progress Note (SOAP) Subjective: nausea, sweats, interrupted sleep, anxiety, tremors Objective: 01/15/17 10:14 Vital Signs - 8 hr 01/15/17 01/15/17 01/15/17 03:22 06:26 09:19 Temperature 99.4 F 98.7 F Pulse Rate 70 75 Respiratory 18 18 18 Rate Blood Pressure 128/67 119/77 Laboratory Tests 01/14/17 20:47 Urine Color Yellow Urine Appearance Clear Urine pH 5.0 D Ur Specific [place] 1.025 Urine Protein Negative Urine Glucose (UA) Negative Urine Ketones Negative Urine Blood Negative Urine Nitrite Negative Urine Bilirubin Negative Urine Urobilinogen 2.0 Ur Leukocyte Esterase Negative labs pending, u/a noted Assessment: 01/15/17 10:14 withdrawal sx Plan: cont detox, review lab results
[2017-01-15] MEDS: PRENATAL VITAMINS W/ FOLIC ACID TABLET (FP) PO SCH (10:23)
[2017-01-15] MEDS: amLODIPine BESYLATE 10 MG TABLET (FP) PO SCH (10:23)
[2017-01-15] MEDS: ASPIRIN 81 MG CHEWABLE TABLETS PO SCH (10:23)
[2017-01-15] MEDS: NICOTINE 14 MG/24 HOURS TOPICAL PATCH TD SCH (10:24)
[2017-01-15 10:42] LABS: ALBUMIN 3.3 g/dl (3.4-5.0); ALK PHOS 64 U/L (45-117); ANION GAP 8 (8-16); BILIRUBIN,TOTAL 1.5 mg/dL (0.2-1.0); CALCIUM 8.2 mg/dL (8.5-10.1); CO2 26 mmol/L (21-32); CREATININE 0.8 mg/dL (0.7-1.3); GLUCOSE,RANDOM 81 mg/dL (74-106); SGOT/AST 23 U/L (15-37); SGPT/ALT 22 U/L (12-78); TOT PROT 6.5 g/dl (6.4-8.2)
--- NOTE | 2017-01-15 12:46 | CONSULT ---
[facility] Psychiatric Consult - Data Date of interview: 01/15/17 Admission source: [facility] Identifying data: One of multiple admissions to [facility] for this 61 y/o AA male seeking detox treatment for alcohol dependence (utox is positive for marijuana).Patient is single without children,domiciled,unemployed and supported on Public Assistance. Substance Abuse History: Confirmed by patient. Smoking Cessation. Smoking history: Current every day smoker. Have you smoked in the past 12 months: Yes. Aproximately how many cigarettes per day: 4. Cigars Per Day: 0. Hx Chewing Tobacco Use: No. Initiated information on smoking cessation: Yes. 'Breaking Loose' booklet given: 01/14/17. - Substance & Tx. History. Hx Alcohol Use: Yes (last drink yesterday). Hx Substance Use: Yes (cocaine ). Substance Use Type: Alcohol, Cocaine. Hx Substance Use Treatment: Yes. - Substances Abused. Alcohol. Route: Oral. Frequency: Daily. Amount used: 3-4 points vodka daily. Age of first use: 18. Date of Last Use: 01/13/17. Cocaine. Route: Smoking. Frequency: 1-3 times last 30 days. Amount used: $120/day. Age of first use: 30. Date of Last Use: 01/13/17 Medical History: GERD,anemia,hypertension and hepatitis C. Psychiatric History: Diagnosed with Bipolar Dipolar Disorder.Past history of a psychiatric hospitalization at [facility] (2013).Prescribed sertraline and trazodone.Mr Cotto is followed at [facility] in [facility].Noted history of suicide attempt via overdose with medications (2012). Physical/Sexual Abuse/Trauma History: Patient denies. Additional Comment: Urine Drug Screen Results: MAX-Cocaine.Noted. Mental Status Exam - Mental Status Exam Alert and Oriented to: Time, Place, Person Cognitive Function: Good Patient Appearance: Well Groomed Mood: Hopeful, Euthymic Affect: Appropriate, Normal Range Patient Behavior: Fatigued, Appropriate, Cooperative Speech Pattern: Clear Voice Loudness: Normal Thought Process: Goal Oriented Thought Disorder: Not Present Hallucinations: Denies Suicidal Ideation: Denies Homicidal Ideation: Denies Insight/Judgement: Poor Sleep: Poorly, Difficulty falling asleep Appetite: Good Muscle strength/Tone: Normal Gait/Station: Normal Psychiatric Findings - Problem List ([place] 1, 2,3) (1) Alcohol dependence with uncomplicated withdrawal Current Visit: Yes Status: Acute (2) Cocaine dependence Current Visit: Yes Status: Acute (3) Nicotine dependence Current Visit: Yes Status: Acute Qualifiers: Nicotine product type: cigarettes Substance use status: uncomplicated Qualified Code(s): F17.210 - Nicotine dependence, cigarettes, uncomplicated (4) Substance induced mood disorder Current Visit: Yes Status: Acute (5) Depressive disorder Current Visit: Yes Status: Chronic (6) Essential hypertension Current Visit: Yes Status: Chronic (7) GERD (gastroesophageal reflux disease) Current Visit: Yes Status: Chronic Qualifiers: Esophagitis presence: without esophagitis Qualified Code(s): K21.9 - Gastro-esophageal reflux disease without esophagitis (8) Hepatitis C Current Visit: Yes Status: Chronic Qualifiers: Viral hepatitis chronicity: chronic Hepatic coma status: without hepatic coma Qualified Code(s): B18.2 - Chronic viral hepatitis C (9) Insomnia Current Visit: Yes Status: Acute Qualifiers: Insomnia type: primary Qualified Code(s): F51.01 - Primary insomnia - Initial Treatment Plan Initial Treatment Plan: Psychoeducation.Detoxification.Medications : trazodone 100 mg po hs + zoloft 50 mg po daily.Side effects/benefits discussed with the patient.Risk of priapism,suicidal ideation and sexual impotence are reviewed with the patient.Mr Cotto insists on resumming these two medications.Observation.
[2017-01-15] MEDS ORDERED: DOCUSATE SODIUM 100 MG CAPSULE (FP) PO ONE (15:30)
[2017-01-15] MEDS: ZOLPIDEM TARTRATE 5 MG TABLET PO PRN (22:04)
[2017-01-15] MEDS: THIAMINE HCL 100 MG TABLET (FP) PO SCH (22:04)
[2017-01-15] MEDS: traZODone HCL 100 MG TABLET (FP) PO SCH (22:04)
[2017-01-15] MEDS: DOCUSATE SODIUM 100 MG CAPSULE (FP) PO SCH (22:04)
[2017-01-16] MEDS: chlordiazePOXIDE HCL 25 MG CAPSULE PO SCH ×2 (05:56→10:07)
[2017-01-16] MEDS: NICOTINE 14 MG/24 HOURS TOPICAL PATCH TD SCH (10:06)
[2017-01-16] MEDS: ASPIRIN 81 MG CHEWABLE TABLETS PO SCH (10:06)
[2017-01-16] MEDS: PRENATAL VITAMINS W/ FOLIC ACID TABLET (FP) PO SCH (10:07)
[2017-01-16] MEDS: amLODIPine BESYLATE 10 MG TABLET (FP) PO SCH (10:07)
[2017-01-16] MEDS: SERTRALINE HCL 50 MG TABLET (FP) PO SCH (10:07)
[2017-01-16] MEDS ORDERED: POTASSIUM CHLORIDE TABS 20 MEQ TABLET.ER (FP) PO ONE (10:30)
--- NOTE | 2017-01-16 11:50 | PN ---
[facility] CIWA - CIWA Score Nausea/Vomitin-Int. Nausea w/Dry Heave Muscle Tremors: 3 Anxiety: 3 Agitation: 2 Paroxysmal Sweats: No Perspiration Orientation: 0-Oriented Tacttile Disturbances: 3-Moderate Itch/Numb/Burn Auditory Disturbances: 0-None Visual Disturbances: 0-None Headache: 0-None Present CIWA-Ar Total Score: 15 BHS Progress Note (SOAP) Subjective: Body Aches, Stomach Cramping, Tremors. Objective: PT. A & O X 3, OBSERVED AMBULATING ON UNIT. NO ACUTE DISTRESS. 01/16/17 11:49 Vital Signs Temperature 98.5 F 01/16/17 09:42 Pulse Rate 92 H 01/16/17 09:42 Respiratory Rate 18 01/16/17 09:42 Blood Pressure 101/72 01/16/17 09:42 O2 Sat by Pulse Oximetry (%) Laboratory Tests 01/14/17 01/15/17 01/15/17 20:47 07:00 07:00 Sodium 138 Potassium 3.3 L Chloride 104 Carbon Dioxide 26 Anion Gap 8 BUN 12 D Creatinine 0.8 Creat Clearance w eGFR > 60 Random Glucose 81 D Calcium 8.2 L Total Bilirubin 1.5 H D AST 23 D ALT 22 D Alkaline Phosphatase 64 Total Protein 6.5 Albumin 3.3 L D Urine Color Yellow Urine Appearance Clear Urine pH 5.0 D Ur Specific [place] 1.025 Urine Protein Negative Urine Glucose (UA) Negative Urine Ketones Negative Urine Blood Negative Urine Nitrite Negative Urine Bilirubin Negative Urine Urobilinogen 2.0 Ur Leukocyte Esterase Negative RPR Titer Nonreactive LABS NOTED. CBC RESULTS PENDING. 01/16/17 11:50 Assessment: 01/16/17 11:49 WITHDRAWAL SYMPTOMS. HYPOKALEMIA. 01/16/17 11:50 Plan: CONTINUE DETOX. K, 20 MEQ PO X 1 NOW, THEN 20 MEQ PO BID AFTER.
[2017-01-16] MEDS: chlordiazePOXIDE 5 MG CAPSULE PO SCH ×2 (17:08→22:08)
[2017-01-16] MEDS: POTASSIUM CHLORIDE TABS 20 MEQ TABLET.ER (FP) PO SCH (17:10)
[2017-01-16] MEDS: THIAMINE HCL 100 MG TABLET (FP) PO SCH (22:08)
[2017-01-16] MEDS: traZODone HCL 100 MG TABLET (FP) PO SCH (22:08)
[2017-01-16] MEDS: DOCUSATE SODIUM 100 MG CAPSULE (FP) PO SCH (22:08)
[2017-01-16] MEDS: ZOLPIDEM TARTRATE 5 MG TABLET PO PRN (22:11)
[2017-01-17] MEDS: chlordiazePOXIDE 5 MG CAPSULE PO SCH ×2 (05:56→10:08)
[2017-01-17 09:14] VITALS: BP 115/74; PULSE 82; TEMP 97
[2017-01-17] MEDS: amLODIPine BESYLATE 10 MG TABLET (FP) PO SCH (10:06)
[2017-01-17] MEDS: SERTRALINE HCL 50 MG TABLET (FP) PO SCH (10:07)
[2017-01-17] MEDS: PRENATAL VITAMINS W/ FOLIC ACID TABLET (FP) PO SCH (10:07)
[2017-01-17] MEDS: ASPIRIN 81 MG CHEWABLE TABLETS PO SCH (10:07)
[2017-01-17] MEDS: POTASSIUM CHLORIDE TABS 20 MEQ TABLET.ER (FP) PO SCH (10:07)
[2017-01-17] MEDS: NICOTINE 14 MG/24 HOURS TOPICAL PATCH TD SCH (10:08)
--- NOTE | 2017-01-17 11:36 | EKG ---
Test Reason : Blood Pressure : / mmHG Vent. Rate : 058 BPM Atrial Rate : 058 BPM P-R Int : 112 ms QRS Dur : 086 ms QT Int : 402 ms P-R-T Axes : 076 065 065 degrees QTc Int : 394 ms SINUS BRADYCARDIA OTHERWISE NORMAL ECG WHEN COMPARED WITH ECG OF 18-SEP-2016 13:43, T WAVE AMPLITUDE HAS INCREASED IN ANTERIOR LEADS Confirmed by JOÃO HUSTON MD ([id number]) on 01/17/2017 11:35:59 AM Referred By: Confirmed By:JOÃO HUSTON MD
--- NOTE | 2017-01-17 12:00 | DS ---
[facility] Detox Discharge Summary Admission Date: 01/14/17 Discharge Date: 01/17/17 - History Present History: Alcohol Dependence, Cannabis Dependence, Cocaine Dependence Additional Comments: PATIENT REPORTS MINIMAL DETOX SYMPTOMS AND THAT HE FEELS WELL OVERALL. PATIENT GOING TO [facility] ([place] WHILE BED IS AVAILABLE THERE. PATIENT ADVISED TO CONSIDER LOCAL OUTPATIENT 12-STEP / AA / NA SUPPORT GROUPS FOR FOLLOW-UP AFTERCARE. PATIENT WAS DISCHARGED FROM UNIT IN STABLE MEDICAL CONDITION. Pertinent Past History: History of Anemia, HTN, Hep C, Depression, Bipolar Disorder, Insomnia, GERD. - Physical Exam Results Vital Signs: Vital Signs Temperature 97.0 F L 01/17/17 09:13 Pulse Rate 82 01/17/17 09:13 Respiratory Rate 18 01/17/17 09:13 Blood Pressure 115/74 01/17/17 09:13 O2 Sat by Pulse Oximetry (%) Pertinent Admission Physical Exam Findings: WITHDRAWAL SYMPTOMS. Laboratory Tests 01/14/17 01/15/17 01/15/17 20:47 07:00 07:00 Sodium 138 Potassium 3.3 L Chloride 104 Carbon Dioxide 26 Anion Gap 8 BUN 12 D Creatinine 0.8 Creat Clearance w eGFR > 60 Random Glucose 81 D Calcium 8.2 L Total Bilirubin 1.5 H D AST 23 D ALT 22 D Alkaline Phosphatase 64 Total Protein 6.5 Albumin 3.3 L D Urine Color Yellow Urine Appearance Clear Urine pH 5.0 D Ur Specific [place] 1.025 Urine Protein Negative Urine Glucose (UA) Negative Urine Ketones Negative Urine Blood Negative Urine Nitrite Negative Urine Bilirubin Negative Urine Urobilinogen 2.0 Ur Leukocyte Esterase Negative RPR Titer Nonreactive LABS NOTED. - Treatment Hospital Course: Detox Protocol Followed, Detoxed Safely, Responded well, Discharged Condition Good Patient has Accepted a Rehab Referral to: PT. ADVISED TO PURSUE LOCAL 12-STEP/NA /AA SUPPORT GROUPS FOR AFTERCARE. - Medication Discharge Medications: Ambulatory Orders Sertraline HCl [Zoloft -] 100 mg PO DAILY #30 tablet 03/15/16 Sertraline HCl [Zoloft] 100 mg PO HS #30 tablet 01/15/17 Trazodone HCl 100 mg PO HS #30 tablet 01/15/17 Amlodipine Besylate [Norvasc -] 10 mg PO DAILY #30 tablet 01/17/17 Aspirin [ASA -] 81 mg PO DAILY #30 tab.chew 01/17/17 - Diagnosis (1) Alcohol dependence with uncomplicated withdrawal Current Visit: Yes Status: Acute (2) Cocaine dependence Current Visit: Yes Status: Acute Qualifiers: Substance use status: uncomplicated Qualified Code(s): F14.20 - Cocaine dependence, uncomplicated (3) Insomnia Current Visit: Yes Status: Acute Qualifiers: Insomnia type: primary Qualified Code(s): F51.01 - Primary insomnia (4) Nicotine dependence Current Visit: Yes Status: Chronic Qualifiers: Nicotine product type: cigarettes Substance use status: uncomplicated Qualified Code(s): F17.210 - Nicotine dependence, cigarettes, uncomplicated (5) Substance induced mood disorder Current Visit: Yes Status: Acute (6) Bipolar disorder Current Visit: Yes Status: Chronic Qualifiers: Active/Remission status: currently active Current bipolar episode type : depressed Current episode severity: mild Qualified Code(s): F31.31 - Bipolar disorder, current episode depressed, mild (7) Depressive disorder Current Visit: Yes Status: Chronic (8) Essential hypertension Current Visit: Yes Status: Chronic (9) GERD (gastroesophageal reflux disease) Current Visit: Yes Status: Chronic Qualifiers: Esophagitis presence: without esophagitis Qualified Code(s): K21.9 - Gastro-esophageal reflux disease without esophagitis (10) Hepatitis C Current Visit: Yes Status: Chronic Qualifiers: Viral hepatitis chronicity: chronic Hepatic coma status: without hepatic coma Qualified Code(s): B18.2 - Chronic viral hepatitis C - AMA Did Patient Leave Against Medical Advice: No
[2017-01-17] MEDS ORDERED: chlordiazePOXIDE HCL 10 MG CAPSULE PO SCH (17:00)
== END 2017-01-17 11:50 | disposition home or self-care (01) | DRG 774 ==
LOC: YASAS 12:46 → Y3N 18:22
PROVIDERS: ADMIT Internal Medicine Addiction Medicine; ATTEND Internal Medicine Addiction Medicine
PROC: HZ2ZZZZ Detoxification Services for Substance Abuse Treatment (ICD-10-PCS; principal; 2017-01-14)
DX: F10.230 Alcohol dependence with withdrawal, uncomplicated (principal); F14.20 Cocaine dependence, uncomplicated; F17.210 Nicotine dependence, cigarettes, uncomplicated; F19.24 Other psychoactive substance dependence with psychoactive substance-induced mood disorder; F31.31 Bipolar disorder, current episode depressed, mild; F32.9 Major depressive disorder, single episode, unspecified; I10 Essential (primary) hypertension; K21.9 Gastro-esophageal reflux disease without esophagitis; B18.2 Chronic viral hepatitis C; E87.6 Hypokalemia; Z86.2 Personal history of diseases of the blood and blood-forming organs and certain disorders involving the immune mechanism; Z91.14 Patient's other noncompliance with medication regimen
CPT/HCPCS: 36415; 80053; 81003; 86593; 93005; 93010

== ENCOUNTER 2019-11-21 11:22 | Inpatient (IN) | payer OTHER ==
--- NOTE | 2019-11-21 14:49 | BHS.RME ---
Substance Use & Tx History - Substance Use History Alcohol Substance amount: 1 pint of vodka/4 of 12 ozs of beer Frequency of use: Daily Substance route: Oral Date of Last Use: 11/20/19 Cocaine-Crack Substance amount: 30$ Frequency of use: Daily Substance route: Smoking Date of Last Use: 11/20/19 Marijuana/Hashish Substance amount: 10$ Frequency of use: Less than 3 times per week Substance route: Smoking Date of Last Use: 11/20/19 - Last Treatment Date of last treatment: [facility] 07/29/17 o 08/02/17 Where was last treatment: Detox Physical/Psych/Mental Status - Behavior Eye Contact: Normal - Cooperativeness Cooperativeness: Cooperative - Thinking Thought Processes: Logical Thought content: Future oriented - Physical Health Problems Is patient presently having any pain?: No Does patient presently have any injuries (include location): No Does patient currently have a fever: No CIWA Nausea/Vomitin Muscle Tremors: 3 Anxiety: 3 Agitation: 3 Paroxysmal Sweats: 1-Minimal Palms Moist Orientation: 0-Oriented Tacttile Disturbances: 1-Very Mild Itch/Numbness Auditory Disturbances: 0-None Visual Disturbances: 0-None Headache: 2-Mild CIWA-Ar Total Score: 15
--- NOTE | 2019-11-21 14:55 | HP ---
CIWA Score Nausea/Vomitin Muscle Tremors: 3 Anxiety: 3 Agitation: 3 Paroxysmal Sweats: 1-Minimal Palms Moist Orientation: 0-Oriented Tacttile Disturbances: 1-Very Mild Itch/Numbness Auditory Disturbances: 0-None Visual Disturbances: 0-None Headache: 2-Mild CIWA-Ar Total Score: 15 - Admission Criteria OASAS Guidelines: Admission for Medically Managed Detox: Requires at least one of the followin. CIWA greater than 12 2. Seizures within the past 24 hours 3. Delirium tremens within the past 24 hours 4. Hallucinations within the past 24 hours 5. Acute intervention needed for co occurring medical disorder 6. Acute intervention needed for co occurring psychiatric disorder 7. Severe withdrawal that cannot be handled at a lower level of care (continued vomiting, continued diarrhea, abnormal vital signs) requiring intravenous medication and/or fluids 8. 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 Cardiovascular: Yes: HTN Hepatobiliary: Yes: Cirrhosis Psych: Yes: Bipolar - Smoking History Smoking history: Current every day smoker Have you smoked in the past 12 months: Yes Aproximately how many cigarettes per day: 5 - Alcohol/Substance Use Hx Alcohol Use: Yes (VODKA/RUM/BEER) History of Substance Use: reports: Cocaine, Marijuana Date of Last Use: 11/20/19 - Social History Usual Living Arrangement: Yes: Alone Do you think of yourself as: Straight/Heterosexual ADL: Support Services Occupation: unemployed History of Recent Travel: No Other Social History: unemployed,nicitine dependence,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 Admission [facility] Chief Complaint: i need help to stop drinking alcohol Allergies/Adverse Reactions: Allergies Allergy/AdvReac Type Severity Reaction Status Date / Time No Known Allergies Allergy Verified 07/29/17 17:40 History of Present Illness: this 64 years old male with alcohol dependence,crack and marijuana abused,seeking detox,last detox [facility] 07/29/17 o 08/02/17 history of cirrhosis of liver syncope alcohol related denied seizure hypertension bipolar disorder longest sobriety 3 years plan for rehab after detox unemployed,nicotine dependence,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,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 Exam Limitations: No Limitations - Ebola screening Have you traveled outside of the country in the last 21 days: No Have you been sick,other than usual withdrawal symptoms: No - Review of Systems Constitutional: Loss of Appetite, Malaise, Night Sweats, Changes in sleep, Weakness EENT: reports: Nose Congestion Respiratory: reports: No Symptoms reported Cardiac: reports: No Symptoms Reported GI: reports: Nausea, Poor Appetite, Abdominal cramping : reports: No Symptoms Reported Musculoskeletal: reports: Back Pain, Muscle Pain Integumentary: reports: Dryness Neuro: reports: Tremors Endocrine: reports: No Symptoms Reported Hematology: reports: No Symptoms Reported Psychiatric: reports: No Sypmtoms Reported, Judgement Intact, Mood/Affect Appropiate, Orientated x3, other (bipolar disorder) Patient History - Patient Medical History Hx Anemia: Yes (IN THE PAST) Hx Asthma: No Hx Chronic Obstructive Pulmonary Disease (COPD): No Hx Cancer: No Hx Cardiac Disorders: No Hx Congestive Heart Failure: No Hx Hypertension: Yes (ON MEDS) Hx Hypercholesterolemia: No Hx Pacemaker: No HX Cerebrovascular Accident: No Hx Seizures: No Hx Dementia: No Hx Diabetes: No Hx Gastrointestinal Disorders: Yes (acid reflux no medication) Hx Liver Disease: No Hx Genitourinary Disorders: No Hx Sexually Transmitted Disorders: No Hx Renal Disease (ESRD): No Hx Thyroid Disease: No Hx Human Immunodeficiency Virus (HIV): No (NEGATIVE HX last 2018) Hx Hepatitis C: Yes (TREATED WITH HARVONI IN 2017) Hx Depression: Yes (ON MED) Hx Suicide Attempt: No (DENIES PAST OR PRESENT S/I) Hx Bipolar Disorder: Yes Hx Schizophrenia: No Other Medical History: no suicidal,no homicidl - Patient Surgical History Past Surgical History: Yes Hx Neurologic Surgery: No Hx Cataract Extraction: No Hx Cardiac Surgery: No Hx Lung Surgery: No Hx Breast Surgery: No Hx Breast Biopsy: No Hx Abdominal Surgery: No Hx Appendectomy: No Hx Cholecystectomy: No Hx Genitourinary Surgery: No Hx Section: No Hx Orthopedic Surgery: Yes (fracture both both ankles 27yrs ago) Hx Hysterectomy: No Anesthesia Reaction: No - PPD History Previous Implant?: Yes Documented Results: Positive w/o proof Implanted On Prior [facility] Admission?: No Date: 02/18/15 Results: CXR(-)09/2016 PPD to be Administered?: No - Smoking Cessation Smoking history: Current every day smoker Have you smoked in the past 12 months: Yes Aproximately how many cigarettes per day: 5 Cigars Per Day: 0 Hx Chewing Tobacco Use: No Initiated information on smoking cessation: Yes 'Breaking Loose' booklet given: 11/21/19 - Substance & Tx. History Hx Alcohol Use: Yes Hx Substance Use: Yes Substance Use Type: Alcohol, Cocaine, Marijuana Hx Substance Use Treatment: Yes ([facility] 07/29/17 to 08/02/17) - Substances abused Alcohol Substance route: Oral Frequency: Daily Amount used: 1 pint of vodka/4 of 12 ozs of beer Age of first use: 16 Date of last use: 11/20/19 Crack Substance route: Smoking Frequency: Daily Amount used: 30$ Age of first use: 35 Date of last use: 11/20/19 Marijuana/Hashish Substance route: Smoking Frequency: 1-2 times per week Amount used: 10$ Age of first use: 16 Date of last use: 11/20/19 Admission Physical Exam [facility] - Physical General Appearance: Yes: Moderate Distress, Tremorous, Irritable, Sweating, Anxious HEENTM: Yes: Normal ENT Inspection, Normocephalic, Normal Voice, CHRISTOPHER, Pharynx Normal Respiratory: Yes: Normal Breath Sounds, No Respiratory Distress Neck: Yes: Within Normal Limits, Supple, Trachea in good position Breast: Yes: Within Normal Limits Cardiology: Yes: Within Normal Limits, Regular Rhythm, Regular Rate, S1, S2 Abdominal: Yes: Within Normal Limits, Normal Bowel Sounds, Non Tender, Flat, Soft Genitourinary: Yes: Within Normal Limits Back: Yes: Within Normal Limits, Normal Inspection, Muscle Spasm Musculoskeletal: Yes: full range of Motion, Back pain, Muscle Pain Extremities: Yes: Tremors 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, Fully Oriented, Alert, Motor Strength 5/5 Integumentary: Yes: Dry Lymphatic: Yes: Within Normal Limits - Diagnostic (1) Alcohol dependence with uncomplicated withdrawal Current Visit: No Status: Acute (2) Cocaine dependence Current Visit: No Status: Acute Qualifiers: Substance use status: uncomplicated Qualified Code(s): F14.20 - Cocaine dependence, uncomplicated (3) Bipolar disorder Current Visit: No Status: Chronic Qualifiers: Active/Remission status: currently active Current bipolar episode type: depressed Current episode severity: mild Qualified Code(s): F31.31 - Bipolar disorder, current episode depressed, mild (4) Essential hypertension Current Visit: No Status: Chronic (5) GERD (gastroesophageal reflux disease) Current Visit: No Status: Chronic Qualifiers: Esophagitis presence: without esophagitis Qualified Code(s): K21.9 - Avelino ro-esophageal reflux disease without esophagitis (6) Nicotine dependence Current Visit: No Status: Chronic Qualifiers: Nicotine product type: cigarettes Substance use status: in withdrawal Qualified Code(s): F17.213 - Nicotine dependence, cigarettes, with withdrawal (7) Hepatitis C Current Visit: No Status: Resolved Qualifiers: Viral hepatitis chronicity: chronic Hepatic coma status: without hepatic coma Qualified Code(s): B18.2 - Chronic viral hepatitis C (8) Cirrhosis of liver Current Visit: Yes Status: Acute Cleared for Admission B[facility] - Detox or Rehab [facility] Level of Care: Medically Managed Detox Regimen/Protocol: Ativan Inpatient Rehab Admission - Rehab Decision to Admit Inpatient rehab admission?: No
[2019-11-21] MEDS ORDERED: MAGNESIUM CITRATE 300 ML BOTTLE PO PRN (15:23)
[2019-11-21] MEDS ORDERED: MENTHOL/PHENOL 1 EACH UD MM PRN (15:23)
[2019-11-21] MEDS ORDERED: BISMUTH SUBSALICYLATE 524 MG/30 ML UD PO PRN (15:23)
[2019-11-21] MEDS ORDERED: LORazepam 1 MG TABLET PO PRN (15:23)
[2019-11-21] MEDS ORDERED: NICOTINE POLACRILEX 2 MG GUM BUC PRN (15:23)
[2019-11-21] MEDS ORDERED: METHOCARBAMOL 500 MG TABLET PO PRN (15:23)
[2019-11-21] MEDS ORDERED: IBUPROFEN 400 MG TABLET (FP) PO PRN (15:23)
[2019-11-21] MEDS ORDERED: MAGNESIUM HYDROX 2400MG/30ML ORAL SUSPENSION 30 ML CUP PO PRN (15:23)
[2019-11-21] MEDS ORDERED: ACETAMINOPHEN 325 MG TABLET (FP) PO PRN ×2 (15:23)
[2019-11-21] MEDS ORDERED: MAG HYDROX/AL HYDROX/SIMETH 30 ML UNIT-DOSE CUP PO PRN (15:23)
[2019-11-21] MEDS ORDERED: ONDANSETRON *ODT* 4 MG TABLET SL ONE (16:00)
[2019-11-21 16:04] VITALS: BMI 19.1
[2019-11-21] MEDS: LORazepam 2 MG TABLET PO SCH ×2 (17:17→22:34)
[2019-11-21] MEDS: hydrOXYzine PAMOATE 25 MG CAPSULE (FP) PO SCH ×2 (17:20→22:34)
[2019-11-21] MEDS ORDERED: THIAMINE HCL 100 MG TABLET (FP) PO SCH (22:00)
[2019-11-21] MEDS ORDERED: MELATONIN 5 MG TABLETS PO SCH (22:00)
[2019-11-22] MEDS: LORazepam 2 MG TABLET PO SCH ×2 (05:03→10:08)
[2019-11-22] MEDS: hydrOXYzine PAMOATE 25 MG CAPSULE (FP) PO SCH ×3 (05:03→13:29)
[2019-11-22 09:20] LABS: HEMATOCRIT 40.2 % (35.4-49); MCH 30.9 pg (25.7-33.7); MCHC 32.4 g/dl (32.0-35.9); MEAN CELL VOLUME 95.5 fl (80-96); MEAN PLT VOLUME 9.6 fl (7.5-11.1); PLATELET COUNT 95 K/MM3 (134-434); RBC 4.21 M/mm3 (4.00-5.60); RDW 12.7 % (11.9-15.9); WHITE BLOOD COUNT 4.2 K/mm3 (4.0-10.0)
[2019-11-22 09:30] LABS: ALBUMIN 3.4 g/dl (3.4-5.0); BILIRUBIN,TOTAL 1.1 mg/dL (0.2-1); CALCIUM 8.8 mg/dL (8.5-10.1); CREATININE 0.7 mg/dL (0.55-1.3); POTASSIUM 3.8 mmol/L (3.5-5.1); TOT PROT 6.2 g/dl (6.4-8.2)
[2019-11-22] MEDS ORDERED: NICOTINE 14 MG/24 HOURS TOPICAL PATCH TD SCH (10:00)
[2019-11-22] MEDS ORDERED: PRENATAL VITAMINS W/ FOLIC ACID TABLET (FP) PO SCH (10:00)
--- NOTE | 2019-11-22 10:12 | CONSULT ---
[facility] Psychiatric Consult - Data Date of interview: 11/22/19 Admission source: [facility] Identifying data: Patient is a 64 year old single male, without children, unemployed, homeless, and is supported by [facility]. This is one of multiple admissions for patient. Patient admitted to for alcohol, cocaine, and marijuana dependence. Substance Abuse History: Smoking Cessation. Smoking history: Current every day smoker. Have you smoked in the past 12 months: Yes. Aproximately how many cigarettes per day: 5. Cigars Per Day: 0. Hx Chewing Tobacco Use: No. Initiated information on smoking cessation: Yes. 'Breaking Loose' booklet give n: 11/21/19. - Substance & Tx. History. Hx Alcohol Use: Yes. Hx Substance Use: Yes. Substance Use Type: Alcohol, Cocaine, Marijuana. Hx Substance Use Treatment: Yes ([facility] 07/29/17 to 08/02/17). - Substances abused. Alcohol. Substance route: Oral. Frequency: Daily. Amount used: 1 pint of vodka/4 of 12 ozs of beer. Age of first use: 16. Date of last use: 11/20/19. Crack. Substance route: Smoking. Frequency: Daily. Amount used: 30$. Age of first use: 35. Date of last use: 11/20/19. Marijuana/Hashish. Substance route: Smoking. Frequency: 1-2 times per week. Amount used: 10$. Age of first use: 16. Date of last use: 11/20/19 Medical History: Hypertension, Syncope, Cirrhosis of the liver. Psychiatric History: Patient reports history of two psychiatric hospitalizations ([facility] most recenty at [facility] in 2018. Patient unable to provide a coherent psychiatric history as he presents as lethargic. Mr. Cotto is totally lost in follow up care. Reports most recently seeing a psychiatrist six months ago. Patient unsure what he was prescribed but as per previous notes he has been prescribed zoloft 50mg + Trazodone 50mg while receiving OPD at [facility] in the [place] in 2018. Diagnosis of Bipolar disorder. Mr. Cotto denies history of suicide attempt. At present patient reports sleeping poorly last night. Physical/Sexual Abuse/Trauma History: denies. Mental Status Exam - Mental Status Exam Alert and Oriented to: Time, Place, Person Cognitive Function: Good Patient Appearance: Well Groomed Mood: Withdrawn Affect: Mood Congruent Patient Behavior: Fatigued, Asleep (Patient needed to be awaken several times to complete assessment. ) Speech Pattern: Delayed Voice Loudness: Mildly Soft/Quiet Thought Process: Goal Oriented Thought Disorder: Not Present Hallucinations: Denies Suicidal Ideation: Denies Homicidal Ideation: Denies Insight/Judgement: Poor Sleep: Poorly Appetite: Fair Muscle strength/Tone: Normal Gait/Station: Other (Did not observe gait.) Psychiatric Findings - Problem List ([place] 1, 2,3) (1) Substance induced mood disorder Current Visit: Yes Status: Acute (2) Alcohol dependence with uncomplicated withdrawal Current Visit: Yes Status: Acute (3) Nicotine dependence Current Visit: Yes Status: Chronic Qualifiers: Nicotine product type: cigarettes Substance use status: in withdrawal Qualified Code(s): F17.213 - Nicotine dependence, cigarettes, with withdrawal (4) Substance-induced sleep disorder Current Visit: Yes Status: Acute (5) Bipolar disorder Current Visit: No Status: Chronic Qualifiers: Active/Remission status: currently active Current bipolar episode type: depressed Current episode severity: mild Qualified Code(s): F31.31 - Bipolar disorder, current episode depressed, mild Comment: As per history. - Initial Treatment Plan Initial Treatment Plan: Psychoeducation provided. Detoxification in progress. Will order Trazodone 50mg HS. Benefits and side effects discussed. Verbal cons ent given.
[2019-11-22] MEDS ORDERED: PNEUMOC 13-VAL CONJ-DIP CRM/PF 0.5 ML DISP.SYRIN IM ONE (12:00)
--- NOTE | 2019-11-22 12:00 | PN ---
[facility] CIWA - CIWA Score Nausea/Vomitin-No Nausea/No Vomiting Muscle Tremors: 2 Anxiety: 3 Agitation: 3 Paroxysmal Sweats: 2 Orientation: 0-Oriented Tacttile Disturbances: 0-None Auditory Disturbances: 0-None Visual Disturbances: 2-Mild Sensitivity Headache: 0-None Present CIWA-Ar Total Score: 12 S Progress Note (SOAP) Subjective: complaints of sweats, tremors, anxiety and light sensitivity. Objective: 11/22/19 11:59 Vital Signs 11/22/19 11/22/19 11/22/19 05:00 06:31 07:23 Temperature 97.7 F Pulse Rate 48 L 64 Respiratory 61 H 16 Rate Blood Pressure 148/77 O2 Sat by Pulse 98 Oximetry (%) 11/22/19 08:47 Temperature 98.4 F Pulse Rate 69 Respiratory 18 Rate Blood Pressure 146/91 O2 Sat by Pulse Oximetry (%) Laboratory Last Values WBC 4.2 K/mm3 (4.0-10.0) 11/22/19 07:35 RBC 4.21 M/mm3 (4.00-5.60) 11/22/19 07:35 Hgb 13.0 GM/dL (11.7-16.9) 11/22/19 07:35 Hct 40.2 % (35.4-49) 11/22/19 07:35 MCV 95.5 fl (80-96) 11/22/19 07:35 MCH 30.9 pg (25.7-33.7) 11/22/19 07:35 MCHC 32.4 g/dl (32.0-35.9) 11/22/19 07:35 RDW 12.7 % (11.9-15.9) 11/22/19 07:35 Plt Count 95 K/MM3 (134-434) L 11/22/19 07:35 MPV 9.6 fl (7.5-11.1) 11/22/19 07:35 Sodium 140 mmol/L (136-145) 11/22/19 07:35 Potassium 3.8 mmol/L (3.5-5.1) 11/22/19 07:35 Chloride 108 mmol/L (98-107) H 11/22/19 07:35 Carbon Dioxide 28 mmol/L (21-32) 11/22/19 07:35 Anion Gap 5 MMOL/L (8-16) L 11/22/19 07:35 BUN 16.0 mg/dL (7-18) 11/22/19 07:35 Creatinine 0.7 mg/dL (0.55-1.3) 11/22/19 07:35 Est GFR (CKD-EPI)AfAm 115.59 11/22/19 07:35 Est GFR (CKD-EPI)NonAf 99.73 11/22/19 07:35 Random Glucose 86 mg/dL (74-106) 11/22/19 07:35 Calcium 8.8 mg/dL (8.5-10.1) 11/22/19 07:35 Total Bilirubin 1.1 mg/dL (0.2-1) H 11/22/19 07:35 AST 25 U/L (15-37) 11/22/19 07:35 ALT 33 U/L (13-61) 11/22/19 07:35 Alkaline Phosphatase 68 U/L (45-117) 11/22/19 07:35 Total Protein 6.2 g/dl (6.4-8.2) L 11/22/19 07:35 Albumin 3.4 g/dl (3.4-5.0) 11/22/19 07:35 Syphilis Serology Non-reactive (NONREACTIVE) 11/22/19 07:35 HIV Ag/Ab Combo Qual Negative (NEGATIVE) 11/22/19 07:35 Labs reviewed. Assessment: 11/22/19 11:59 Alert and oriented x3, in no acute respiratory distress Full ROM, skin warm to touch, ambulatory on unit without assistance. Mild withdrawal symptoms. Plan: Continue detox protocol.
[2019-11-22 12:58] VITALS: BP 175/76; PULSE 70; TEMP 98
--- NOTE | 2019-11-22 14:24 | EKG ---
Test Reason : Blood Pressure : / mmHG Vent. Rate : 059 BPM Atrial Rate : 059 BPM P-R Int : 114 ms QRS Dur : 082 ms QT Int : 404 ms P-R-T Axes : 071 063 062 degrees QTc Int : 399 ms SINUS BRADYCARDIA SEPTAL INFARCT , AGE UNDETERMINED ABNORMAL ECG WHEN COMPARED WITH ECG OF 29-JUL-2017 21:18, SEPTAL INFARCT IS NOW PRESENT Confirmed by ROCÍO REZA MD ([id number]) on 11/22/2019 2:23:50 PM Referred By: Confirmed By:ROCÍO REZA MD
--- NOTE | 2019-11-22 17:06 | PN ---
[facility] Progress Note Note: patient did not want to complete treatment ,all attempts to convince patient to stay with no avail,high risk of relapsing explained, patient understood,seen by counselor,signed release ama,stated he will go home and will follow up with out patient [facility]
--- NOTE | 2019-11-22 17:12 | DS ---
[facility] Detox Discharge Summary Admission Date: 11/21/19 Discharge Date: 11/22/19 - History Present History: Alcohol Dependence, Cocaine Dependence Additional Comments: alert,oriented x3 ambulation on the unit lung clear on auscultation bilaterally abdomen,soft,no distension,no pain patient signed release ama as mentioned on the previous note will follow up with [facility] out patient Pertinent Past History: essential hypertension gerd hepatitis c nicotine dependence bipolar disorder - Physical Exam Results Vital Signs: Vital Signs Temperature 98.0 F 11/22/19 12:43 Pulse Rate 70 11/22/19 12:43 Respiratory Rate 16 11/22/19 12:43 Blood Pressure 175/76 H 11/22/19 12:43 O2 Sat by Pulse Oximetry (%) 97 11/22/19 12:43 Pertinent Admission Physical Exam Findings: withdrawal signs and symptom Laboratory Last Values WBC 4.2 K/mm3 (4.0-10.0) 11/22/19 07:35 RBC 4.21 M/mm3 (4.00-5.60) 11/22/19 07:35 Hgb 13.0 GM/dL (11.7-16.9) 11/22/19 07:35 Hct 40.2 % (35.4-49) 11/22/19 07:35 MCV 95.5 fl (80-96) 11/22/19 07:35 MCH 30.9 pg (25.7-33.7) 11/22/19 07:35 MCHC 32.4 g/dl (32.0-35.9) 11/22/19 07:35 RDW 12.7 % (11.9-15.9) 11/22/19 07:35 Plt Count 95 K/MM3 (134-434) L 11/22/19 07:35 MPV 9.6 fl (7.5-11.1) 11/22/19 07:35 Sodium 140 mmol/L (136-145) 11/22/19 07:35 Potassium 3.8 mmol/L (3.5-5.1) 11/22/19 07:35 Chloride 108 mmol/L (98-107) H 11/22/19 07:35 Carbon Dioxide 28 mmol/L (21-32) 11/22/19 07:35 Anion Gap 5 MMOL/L (8-16) L 11/22/19 07:35 BUN 16.0 mg/dL (7-18) 11/22/19 07:35 Creatinine 0.7 mg/dL (0.55-1.3) 11/22/19 07:35 Est GFR (CKD-EPI)AfAm 115.59 11/22/19 07:35 Est GFR (CKD-EPI)NonAf 99.73 11/22/19 07:35 Random Glucose 86 mg/dL (74-106) 11/22/19 07:35 Calcium 8.8 mg/dL (8.5-10.1) 11/22/19 07:35 Total Bilirubin 1.1 mg/dL (0.2-1) H 11/22/19 07:35 AST 25 U/L (15-37) 11/22/19 07:35 ALT 33 U/L (13-61) 11/22/19 07:35 Alkaline Phosphatase 68 U/L (45-117) 11/22/19 07:35 Total Protein 6.2 g/dl (6.4-8.2) L 11/22/19 07:35 Albumin 3.4 g/dl (3.4-5.0) 11/22/19 07:35 Syphilis Serology Non-reactive (NONREACTIVE) 11/22/19 07:35 HIV Ag/Ab Combo Qual Negative (NEGATIVE) 11/22/19 07:35 Vital Signs Temperature 98.0 F 11/22/19 12:43 Pulse Rate 70 11/22/19 12:43 Respiratory Rate 16 11/22/19 12:43 Blood Pressure 175/76 H 11/22/19 12:43 O2 Sat by Pulse Oximetry (%) 97 11/22/19 12:43 - Medication Discharge Medications: Ambulatory Orders Amlodipine Besylate [Norvasc -] 10 mg PO DAILY #30 tablet 01/17/17 Aspirin [ASA -] 81 mg PO DAILY #30 tab.chew 01/17/17 Lisinopril 20 mg PO DAILY 07/29/17 - Diagnosis (1) Alcohol dependence with uncomplicated withdrawal Current Visit: Yes Status: Acute (2) Cocaine dependence Current Visit: No Status: Acute Qualifiers: Substance use status: uncomplicated Qualified Code(s): F14.20 - Cocaine dependence, uncomplicated (3) Bipolar disorder Current Visit: No Status: Chronic Qualifiers: Active/Remission status: currently active Current bipolar episode type: depressed Current episode severity: mild Qualified Code(s): F31.31 - Bipolar disorder, current episode depressed, mild (4) Essential hypertension Current Visit: No Status: Chronic (5) GERD (gastroesophageal reflux disease) Current Visit: No Status: Chronic Qualifiers: Esophagitis presence: without esophagitis Qualified Code(s): K21.9 - Gastro-esophageal reflux disease without esophagitis (6) Nicotine dependence Current Visit: Yes Status: Chronic Qualifiers: Nicotine product type: cigarettes Substance use status: in withdrawal Qualified Code(s): F17.213 - Nicotine dependence, cigarettes, with withdrawal (7) Hepatitis C Current Visit: No Status: Resolved Qualifiers: Viral hepatitis chronicity: chronic Hepatic coma status: without hepatic coma Qualified Code(s): B18.2 - Chronic viral hepatitis C (8) Cirrhosis of liver Current Visit: Yes Status: Acute - AMA Did Patient Leave Against Medical Advice: Yes
[2019-11-22] MEDS ORDERED: traZODone HCL 50 MG TABLET (FP) PO SCH (22:00)
[2019-11-23] MEDS ORDERED: LORazepam 1 MG TABLET PO SCH (05:00)
[2019-11-24] MEDS ORDERED: LORazepam 0.5 MG TABLET PO PRN
[2019-11-24] MEDS ORDERED: LORazepam 0.5 MG TABLET PO SCH (05:00)
[2019-11-25] MEDS ORDERED: LORazepam 0.5 MG TABLET PO ONE (05:00)
== END 2019-11-22 17:25 | disposition left against medical advice (07) | DRG 770 ==
LOC: YASAS 11:22 → Y6N 15:26
PROVIDERS: ADMIT Allergy & Immunology; ATTEND Allergy & Immunology
PROC: HZ2ZZZZ Detoxification Services for Substance Abuse Treatment (ICD-10-PCS; principal; 2019-11-21)
DX: F10.230 Alcohol dependence with withdrawal, uncomplicated (principal); F14.20 Cocaine dependence, uncomplicated; F12.20 Cannabis dependence, uncomplicated; F17.210 Nicotine dependence, cigarettes, uncomplicated; F19.282 Other psychoactive substance dependence with psychoactive substance-induced sleep disorder; F19.24 Other psychoactive substance dependence with psychoactive substance-induced mood disorder; F31.31 Bipolar disorder, current episode depressed, mild; I10 Essential (primary) hypertension; K74.60 Unspecified cirrhosis of liver; B19.20 Unspecified viral hepatitis C without hepatic coma; Z56.0 Unemployment, unspecified; Z59.0 Homelessness
CPT/HCPCS: 36415; 80053; 85027; 86780; 87389; 93005; 93010; Q0162; U0003